=== PATIENT | male | born 1960 | race Caucasian/White ===

== ENCOUNTER → 2018-03-16 | Day surgery (SDC) | payer OTHER ==
[~2018-03-16] MED LIST: ASPIR 8181 MG PO; CALCET TABLET1 EACH PO; CLONAZEPAM0.5 MG PO; GABAPENTIN300 MG PO; LIDOCAINE HCL 2% LOCAL INJ 5 ML SDV VIAL INJ ONE; LYRICA50 MG PO; MIDAZOLAM HCL 2 MG/2 ML VIAL ONE; MIRTAZAPINE15 MG PO; PROPOFOL IV EMULSION 10 MG/ML 50 ML VIAL ONE; RANITIDINE PO; TRAZODONE HCL50 MG PO
[2018-03-16 10:53] VITALS: BP 125/84
[2018-03-16 13:24] LABS: C DIFFICILE TOXIN A&B AMP PROB NEGATIVE (NEGATIVE); WBC,FECAL (FECAL LACTOFERRIN) NEGATIVE (NEGATIVE)
--- NOTE | 2018-03-16 14:26 | Operative Report ---
DATE OF PROCEDURE: March 16, 2018 REFERRING PHYSICIAN: Dr. Chayito Amado. PROCEDURES PERFORMED 1. Esophagogastroduodenoscopy with biopsies. 2. Colonoscopy with polypectomy and biopsies. INDICATIONS FOR EGD: History of heartburn and indigestion. INDICATIONS FOR COLONOSCOPY: History of bright red blood per rectum, intermittent loose stools. MEDICATION: Patient was done under MAC. Please see anesthesiologist's note. PROCEDURE: With the patient in left lateral decubitus position, a flexible fiberoptic Olympus gastroscope was introduced into the esophagus under direct visualization without any difficulty. There was some patchy erythema noted in distal esophagus. A minute tongue of velvety red mucosa was noted to extend proximally from the GE junction and that was biopsied to rule out Pierce's. The scope was then advanced with ease into the stomach traversing a small hiatal hernia. Mucosa overlying the antrum and the body revealed some patchy erythema and [id number] edema, and biopsies were obtained and sent to stain for H. pylori. Pylorus appeared to be of normal contour and shape, was intubated with ease, and the scope was advanced all the way to the second portion of the duodenum. The scope was then withdrawn slowly. Mucosa overlying the proximal second portion appeared to be within normal limits. The mucosa overlying the duodenal bulb revealed some patchy intense erythema. The scope was then withdrawn back into the stomach and retroflexed, and the mucosa overlying the fundus and the cardia appeared to be within normal limits. The scope was then straightened out. The stomach was decompressed. The scope was subsequently withdrawn. Patient tolerated the procedure well. IMPRESSION 1. Distal esophagitis, mild. 2. Rule out Pierce's esophagus. 3. Small hiatal hernia. 4. Gastritis, biopsied, biopsies sent to stain for Helicobacter pylori. 5. Duodenitis. PLAN: Follow up histology. Initiate Protonix 40 mg 1 p.o. q.a.m. a.c. Patient was then turned around and after adequate lubrication of the anal canal, a flexible fiberoptic Olympus colonoscope was inserted into the rectum with ease and advanced all the way to the cecum. Mucosa overlying the cecum appeared to be within normal limits. The ileocecal valve was intubated and the scope was advanced into the terminal ileum. Biopsies were obtained. The scope was then withdrawn back into the colon. The scope was then withdrawn slowly and scattered diverticular disease was noted throughout. There were some mild patchy inflammatory changes noted in the left colon and random biopsies were obtained. The similar findings were also noted in the rectum. One polyp was snared and one polyp was hot biopsied from the rectum. The scope was then retroflexed into the distal rectum and small internal hemorrhoids were noted, none of which was actively bleeding. The scope was then straightened out and was subsequently withdrawn. Patient tolerated the procedure well. IMPRESSION 1. Pandiverticulosis. 2. Mild patchy left-sided colitis. 3. Rectal polyps x2, one snared and one hot biopsied. 4. Internal hemorrhoids, none actively bleeding. PLAN: Follow up histology. Follow up stool studies. Initiate VSL#3 one p.o. daily, Bentyl 10 mg 1 p.o. t.i.d., hydrocortisone suppositories 25 mg 1 suppository b.i.d. x10 days, then p.r.n. Patient might benefit from a followup colonoscopy in 3 to 5 years. Job#: [id number] LPA cc:DR. CHAYITO AMADO
--- OUTSIDE RECORDS SUMMARY | 2018-03-17 14:18 | XMS REPORT ---
[facility] Unknown Phone Unavailable Care Team Providers Care Analysis Engineer Name Role Phone Unavailable Unavailable Problems This patient has no known problems. Allergies, Adverse Reactions, Alerts This patient has no known allergies or adverse reactions. Medications This patient has no known medications. Encounters Start Date/Time End Date/Time Encounter Type Admission Type Attending [facility] Facility Care Department Encounter ID 2018-04-22 00:00:00 2018-04-22 00:00:00 Outpatient [facility] [id number] 2018-04-06 00:00:00 2018-04-06 00:00:00 Outpatient [facility] [id number] 2018-03-31 00:00:00 2018-03-31 00:00:00 Outpatient [facility] [id number] 2018-03-13 00:00:00 2018-03-13 00:00:00 Outpatient [facility] [id number] 2018-03-12 00:00:00 2018-03-12 00:00:00 Outpatient [facility] [id number] 2018-03-11 12:57:40 2018-03-11 12:57:40 Outpatient [facility] [id number] 2018 13:47:28 2018 13:47:28 Outpatient [facility] [id number] 2018-01-30 15:34:02 2018-01-30 15:34:02 Outpatient [facility] [id number] 2018-01-13 07:01:00 2018-01-13 07:01:00 Outpatient [facility] [id number] 2018-01-13 00:00:00 2018-01-13 00:00:00 Outpatient [facility] [id number] 2018-01-07 07:41:16 2018-01-07 07:41:16 Outpatient [facility] [id number] 2018-01-07 00:00:00 2018-01-07 00:00:00 Outpatient [facility] [id number] 2018-01-06 13:28:11 2018-01-06 13:28:11 Outpatient [facility] [id number] 2017-12-26 00:00:00 2017-12-26 00:00:00 Outpatient [facility] [id number] 2017-12-19 14:22:24 2017-12-19 14:22:24 Outpatient [facility] [id number] 2017-12-16 00:00:00 2017-12-16 00:00:00 Outpatient [facility] [id number] 2017-12-05 08:10:01 2017-12-05 08:10:01 Outpatient [facility] [id number] 2017-11-28 12:42:53 2017-11-28 12:42:53 Outpatient [facility] [id number] 2017-09-23 09:25:52 2017-09-23 09:25:52 Outpatient [facility] [id number] 2017-09-09 09:30:02 2017-09-09 09:30:02 Outpatient [facility] [id number] 2017-09-05 09:45:00 2017-09-05 09:45:00 Outpatient [facility] [id number] 2017-08-15 14:29:10 2017-08-15 14:29:10 Outpatient [facility] [id number] 2017-08-01 13:38:30 2017-08-01 13:38:30 Outpatient [facility] [id number] 2017-07-31 00:00:00 2017-07-31 00:00:00 Outpatient [facility] [id number] 2017-07-29 14:08:12 2017-07-29 14:08:12 Outpatient [facility] [id number] 2017-07-24 00:00:00 2017-07-24 00:00:00 Outpatient [facility] [id number] 2017-07-11 14:01:44 2017-07-11 14:01:44 Outpatient [facility] [id number] 2017-07-11 10:21:08 2017-07-11 10:21:08 Outpatient [facility] [id number] 2017-07-10 00:00:00 2017-07-10 00:00:00 Outpatient [facility] [id number] 2017-06-30 03:35:01 2017-06-30 03:35:01 Emergency [facility] [id number] 2017-06-29 23:27:32 2017-06-29 23:27:32 Emergency [facility] [id number] 2017-06-25 13:26:20 2017-06-25 13:26:20 Outpatient [facility] [id number] 2017-06-19 00:00:00 2017-06-19 00:00:00 Outpatient [facility] [id number] 2017-06-08 13:20:42 2017-06-08 13:20:42 Emergency [facility] [id number] 2017-05-16 12:22:43 2017-05-16 12:22:43 Outpatient [facility] [id number] 2017-05-13 14:08:52 2017-05-13 14:08:52 Outpatient [facility] [id number] 2017-05-04 09:59:56 2017-05-04 09:59:56 Emergency [facility] [id number] 2017-05-04 08:02:07 2017-05-04 08:02:07 Emergency [facility] [id number] 2017-04-28 10:13:28 2017-04-28 10:13:28 Emergency [facility] [id number] 2017-04-23 00:00:00 2017-04-23 00:00:00 Outpatient [facility] [id number] 2017-04-18 09:57:09 2017-04-18 09:57:09 Outpatient [facility] [id number] 2017-04-11 00:00:00 2017-04-11 00:00:00 Outpatient [facility] [id number] 2017-04-07 11:00:49 2017-04-07 11:00:49 Outpatient [facility] [id number] 2017-04-07 09:27:39 2017-04-07 09:27:39 Outpatient [facility] [id number] 2017-04-04 08:05:27 2017-04-04 08:05:27 Outpatient [facility] [id number] 2017-03-27 14:36:07 2017-03-27 14:36:07 Outpatient [facility] [id number] 2017-03-17 10:27:01 2017-03-17 10:27:01 Outpatient [facility] [id number] 2017-03-17 00:00:00 2017-03-17 00:00:00 Outpatient [facility] [id number] 2017-03-17 00:00:00 2017-03-17 00:00:00 Outpatient [facility] [id number] 2017-03-03 11:11:46 2017-03-03 11:11:46 Outpatient [facility] [id number] 2017-03-03 09:28:32 2017-03-03 09:28:32 Outpatient [facility] [id number] 2017-02-27 07:22:25 2017-02-27 07:22:25 Outpatient [facility] [id number] 2017-02-13 10:08:46 2017-02-13 10:08:46 Outpatient [facility] [id number] 2017-02-13 09:02:54 2017-02-13 09:02:54 Outpatient [facility] [id number] 2017 08:43:57 2017 08:43:57 Outpatient [facility] [id number] 2017-02-05 13:03:32 2017-02-05 13:03:32 Outpatient [facility] [id number] 2017-01-30 00:00:00 2017-01-30 00:00:00 Outpatient [facility] [id number] 2017-01-30 00:00:00 2017-01-30 00:00:00 Outpatient [facility] [id number] 2017-01-29 00:00:00 2017-01-29 00:00:00 Outpatient [facility] [id number] 2017-01-29 00:00:00 2017-01-29 00:00:00 Outpatient [facility] [id number] 2017-01-02 13:53:43 2017-01-02 13:53:43 Outpatient [facility] [id number] 2016-12-30 11:35:32 2016-12-30 11:35:32 Outpatient [facility] [id number] 2016-12-26 15:02:44 2016-12-26 15:02:44 Outpatient [facility] [id number] 2016-12-26 00:00:00 2016-12-26 00:00:00 Outpatient [facility] [id number] 2016-12-25 00:00:00 2016-12-25 00:00:00 Outpatient [facility] [id number] 2016-12-04 15:25:25 2016-12-04 15:25:25 Outpatient [facility] [id number] 2016-12-04 09:28:13 2016-12-04 09:28:13 Outpatient [facility] [id number] 2016-12-03 15:06:07 2016-12-03 15:06:07 Emergency [facility] [id number] 2016-12-03 10:10:56 2016-12-03 10:10:56 Emergency [facility] [id number] 2016-11-26 15:15:37 2016-11-26 15:15:37 Outpatient [facility] [id number] 2016-11-26 14:58:58 2016-11-26 14:58:58 Outpatient [facility] [id number] 2016-11-26 14:10:52 2016-11-26 14:10:52 Outpatient [facility] [id number] 2016-11-25 09:30:27 2016-11-25 09:30:27 Outpatient [facility] [id number] 2016-10-31 09:20:54 2016-10-31 09:20:54 Outpatient [facility] [id number] 2016-10-29 14:39:15 2016-10-29 14:39:15 Outpatient [facility] [id number] 2016-10-17 09:13:18 2016-10-17 09:13:18 Outpatient [facility] [id number]
== END | disposition home or self-care (01) ==
LOC: OR 08:10
PROVIDERS: ATTEND Internal Medicine Gastroenterology
DX: K29.70 Gastritis, unspecified, without bleeding (principal); K62.1 Rectal polyp; K51.50 Left sided colitis without complications; K29.80 Duodenitis without bleeding; K20.9 Esophagitis, unspecified; K44.9 Diaphragmatic hernia without obstruction or gangrene; K21.9 Gastro-esophageal reflux disease without esophagitis; K22.8 Other specified diseases of esophagus; K57.30 Diverticulosis of large intestine without perforation or abscess without bleeding; K64.8 Other hemorrhoids; K62.89 Other specified diseases of anus and rectum; M43.06 Spondylolysis, lumbar region; R03.0 Elevated blood-pressure reading, without diagnosis of hypertension; F41.9 Anxiety disorder, unspecified; F17.210 Nicotine dependence, cigarettes, uncomplicated; Z01.810 Encounter for preprocedural cardiovascular examination; Z79.82 Long term (current) use of aspirin
CPT/HCPCS: 43239; 45380; 45384; 45385; 83630; 83993; 87045; 87177; 87328; 87493; 93005; J2001; J2250; 45378